=== PATIENT | male | born 1945 | race Caucasian/White ===

== ENCOUNTER 2017-11-26 06:20 | Inpatient (IN) | payer OTHER, MEDICARE ==
[~2017-11-26] VITALS: Ht 162.6 cm; Wt 113.4 kg
[~2017-11-26 06:20] MED LIST: ASPI1TAB57 PO; ATOR10TA15 PO; CALC1TAB87 PO; CENTCHW4 CHEW; COEN1CAP PO; FISH1200 PO; GLIP10TA6 PO; LANTUS2P SQ; METF1000 PO; RAMI5CAP PO; SAW500CA PO
[2017-11-26] MEDS ORDERED: FAT EMULSION 20% INJ 0 ML ONE (07:16)
[2017-11-26] MEDS ORDERED: MIDAZOLAM HCL 2 MG/2 ML VIAL ONE (07:32)
[2017-11-26] MEDS ORDERED: BUPIVACAINE LIPOSOME PF 1.3% 20 ML VIAL ONE (07:33)
[2017-11-26] MEDS ORDERED: ceFAZolin 2 GM PREMIX 50 ML ONE (07:33)
[2017-11-26] MEDS ORDERED: GENTAMICIN SULFATE 80 MG/2 ML VIAL ONE (07:34)
[2017-11-26] MEDS ORDERED: TRANEXAMIC ACID IV SCH (07:45)
[2017-11-26] MEDS ORDERED: LACTATED RINGER'S 1000 ML IV PRN (07:45)
[2017-11-26] MEDS ORDERED: CHLORHEXIDINE GLUCONATE 2 % 1 PACK (2 CLOTHS) TOPICAL PRN (07:45)
[2017-11-26] MEDS ORDERED: INSULIN HUMAN REGULAR 1,000 UNITS/10 ML VIAL SQ PRN (07:45)
[2017-11-26] MEDS ORDERED: EXPAREL PERI-ARTICULAR INJECTION (TOTAL VOL. 60 ML) P-ARTICULR SCH ×2 (07:45)
[2017-11-26] MEDS ORDERED: METOPROLOL TARTRATE 25 MG TAB PO PRN (07:45)
[2017-11-26] MEDS ORDERED: SODIUM CHLORID 0.9% 500 ML IV PRN (07:45)
[2017-11-26] MEDS ORDERED: CHLORHEXIDINE GLUCONATE 4% SOLN 120 ML BTL TOPICAL SCH (07:45)
[2017-11-26] MEDS ORDERED: POVIDONE IODINE 5% (ANTISEPSIS KIT) 4 APPLICATIONS EACH NARE PRN (07:45)
[2017-11-26] MEDS ORDERED: SODIUM CHLORIDE 0.9% IV SCH (07:45)
[2017-11-26] MEDS ORDERED: VANCOMYCIN 1000 MG/NS 250 ML (for <70 kg) IV SCH ×2 (07:45)
[2017-11-26] MEDS ORDERED: BUPIVACAINE/EPINEPHRINE 0.25% 50 ML VIAL ONE (07:46)
[2017-11-26] MEDS ORDERED: BUPIVACAINE/EPINEPHRINE 0.25% PF 10 ML VIAL ONE (07:46)
[2017-11-26] MEDS ORDERED: ACETAMINOPHEN 1000 MG/100 ML 100 ML IV ONE (08:44)
[2017-11-26] MEDS ORDERED: DEXMEDETOMIDINE HCL 200 MCG/2 ML VIAL ONE (08:54)
[2017-11-26] MEDS ORDERED: SODIUM CHLORIDE 0.9% 20 ML VIAL ONE (11:02)
[2017-11-26] MEDS ORDERED: ePHEDrine/NS 25 MG/5 ML SYRINGE IV ONE (12:00)
[2017-11-26] MEDS ORDERED: NEOSTIGMINE 5 MG/5 ML SYRINGE IV PUSH ONE (12:00)
[2017-11-26] MEDS ORDERED: SUCCINYLCHOLINE CHLORIDE 100 MG/5 ML SYRINGE IV PUSH ONE (12:00)
[2017-11-26] MEDS ORDERED: GLYCOPYRROLATE 1 MG/5 ML SYRINGE IV PUSH ONE (12:00)
[2017-11-26] MEDS ORDERED: LIDOCAINE HCL 1% PF 5 ML SYRINGE OTHER ONE (12:00)
[2017-11-26] MEDS ORDERED: PROPOFOL 200 MG/20 ML AMP IV ONE (12:00)
[2017-11-26] MEDS ORDERED: PHENYLEPH/NS 1000 MCG/10 ML SYR IV ONE (12:00)
[2017-11-26] MEDS ORDERED: LACTATED RINGER'S 1000 ML INJ 1,000 ML IV ONE (12:00)
[2017-11-26] MEDS ORDERED: ROCURONIUM INJ 50 MG/5 ML SYRINGE IV PUSH ONE (12:00)
[2017-11-26] MEDS ORDERED: ONDANSETRON HCL 4 MG/2 ML VIAL IV ONE (12:00)
--- NOTE | 2017-11-26 12:14 | PD.OP ---
cc: Gurwinder Galloway MD Operative Report Date of Surgery: Nov 26, 2017 Preoperative Diagnosis: Osteoarthritis left knee Postoperative Diagnosis: Same Procedure: Left total knee replacement arthroplasty Anesthesia: Gen. with regional for pain control Surgeon: Gurwinder Galloway Children'S Attendant(s): SADIE Matias Operation and Findings: EBL: 100 cc INDICATION: This patient presents with long-standing arthritis of the knee. Attachment record documents conservative measures. The patient now presents for surgical treatment. NOTE: Daiana Matias PA-C was present for the entire surgical procedure as my catalog library assistant. In my medical opinion her skill and care was necessary for proper management of this patient. TOURNIQUET TIME: 65 minutes COMPANY: [employer] FEMUR: Size 7, post stab TIBIA: Size 7, fixed bearing, cemented, 20 mm stem PATELLA: 35 mm POLYETHYLENE INSERT: 11 mm PROCEDURE: This patient was brought the operating room and anesthetized in the supine position. The patient was positioned supine on the table. The tourniquet was placed about the thigh, and the leg was scrubbed with alcohol followed by Hibiclens followed by ChloraPrep and draped sterilely. A timeout was done, and antibiotics were given. After exsanguination the tourniquet was inflated to 250 mmHg. An anterior incision was made and a median parapatellar arthrotomy was performed. The patella was released laterally and subluxed allowing freehand cut of the patella which was then sized. A metal cap was placed over the exposed patellar surface for protection. A fighter pilot hole was placed in the distal femur allowing a 5 valgus cut removing 12 mm from the distal femur. Anterior posterior and chamfer cuts were made. The posterior stabilize osteotomy was made. The attention was directed to the tibia. Retractors were positioned. The external alignment guide was used allowing the lateral tibia to be used as referencing guide and cut utilizing an oscillating saw taking care to avoid any injury to the surrounding soft tissues. This was sized properly. Trial reduction showed that the insert fit nicely. The patient had range of motion extension 0 flexion 125. A medial release was partially necessary. The bony surfaces prepared. On the back table 2 packets of methylmethacrylate were mixed. The components were cemented. Excess cement was removed. The tourniquet let down and hemostasis was controlled. The final plastic insert was inserted. Range of motion was the same as previously noted. A drain was brought through a separate stab incision. The arthrotomy was repaired with interrupted #1 Vicryl suture, subcutaneous tissue 2-0 Vicryl suture and skin with metallic pablo A sterile dressing was applied. Sponge counts, needle counts and instrument counts were all correct. The patient tolerated procedure well and was taken to recovery in satisfactory condition. FINDINGS: There was severe osteoarthritis with erosion of bone stock and a varus deformity of the knee. The final solution was excellent. There was no complication that was appreciated. Gurwinder Galloway MD Nov 26, 2017 12:14
[2017-11-26] MEDS ORDERED: GLUCAGON 1 MG/ML VIAL OTHER PRN (12:15)
[2017-11-26] MEDS ORDERED: DEXTROSE 50% IN WATER 50 ML VIAL(D50) IV PUSH PRN (12:15)
[2017-11-26] MEDS ORDERED: ASPIRIN EC 81 MG TABEC PO ONE (12:15)
[2017-11-26] MEDS ORDERED: OXYC1TAB63 PO (12:17)
[2017-11-26] MEDS ORDERED: ECASA81 PO (12:17)
[2017-11-26] MEDS ORDERED: oxyCODONE/ACETAMINOPHEN 5 MG/325 MG TAB PO PRN (12:30)
[2017-11-26] MEDS ORDERED: Post-op Orders (for Pharmacy) XX ONE (13:00)
[2017-11-26] MEDS: LACTATED RINGER'S 1000 ML INJ 1,000 ML IV SCH ×2 (13:00→22:02)
[2017-11-26] MEDS ORDERED: MORPHINE SULFATE 4 MG/ML INJ ONE (13:06)
--- NOTE | 2017-11-26 13:13 | RADRPT ---
EXAM DATE/TIME: 11/26/2017 12:44 [facility] COMPARISON: No previous studies available for comparison. INDICATIONS : Post left knee arthroplasty. MEDICAL HISTORY : None. SURGICAL HISTORY : Fusion, cervical. ENCOUNTER: Initial ACUITY: 1 day PAIN SCORE: Non-responsive. LOCATION: Left knee FINDINGS: Patient is status post placement of a left knee prosthesis. There is good position and alignment of t he prosthesis and bony structures. The bony structures are grossly intact. Postsurgical changes are p resent. CONCLUSION: Good position and alignment on this postoperative examination. Olaf Pereira MD on November 26, 2017 at 13:10 Board Certified Radiologist. This report was verified electronically.
[2017-11-26] MEDS ORDERED: *morphine SULFATE 10 MG/ML PERIprocedure ONLY ONE ×2 (14:00→16:26)
[2017-11-26] MEDS ORDERED: DO NOT ADM ANY ANTICOAGULANT DRUGS PRN (14:00)
[2017-11-26] MEDS: metFORMIN HCL 500 MG TAB PO SCH (18:00)
[2017-11-26 19:30] VITALS: BP 124/76; PULSE 104; RESP 19; TEMP 96.7; O2SAT 94
[2017-11-26] MEDS: MAGNESIUM HYDROXIDE SUSP 30 ML CUP PO SCH (21:00)
[2017-11-26] MEDS ORDERED: TEMAZEPAM 15 MG CAP PO PRN (21:00)
[2017-11-26] MEDS: ATORVASTATIN 10 MG TAB PO SCH (21:51)
[2017-11-26] MEDS: SENNOSIDES 8.6 MG TAB PO SCH (21:52)
[2017-11-26] MEDS: ASPIRIN EC 81 MG TABEC PO SCH (21:52)
[2017-11-26] MEDS: INSULIN DETEMIR 100 UNITS/ML VIAL SQ SCH (21:53)
--- NOTE | 2017-11-26 22:16 | HHI.FF ---
Face to Face Verification Diagnosis: (1) Osteoarthritis of left knee Physical Therapy Gait training, Safety evaluation, Transfer training, bed to chair Knee: Total knee, Protocol: Left, Full weight bearing Canvas Knee Splint: When in bed & 2 pillows btw thighs Left LE Weight Bearing: WB as tolerated Additional Instructions PT 3-4 days/wk for 2 weeks. WBAT Left LE. TKA protocol. CPM bid as tolerated , 0-60 with goal of 100 flexion. CKS when in bed for 3-4 weeks Nursing RN Days per Week: 2 x Week(s): 1 RN: 3 days/week x 2 weeks (Not sure why this is automating to 3x/wk for 2. Should only be 2x/wk for 1 week.) Dressing Changes: Do not change dressing Additional Instructions Vitals assessment. Hold dressing changes unless saturated or erythema. I have seen patient Yousif Trinh on 11/26/17. My clinical findings support the need for the requested home health care services because: Limited ability to care for self High risk of falls I certify that my clinical findings support that this patient is homebound because: Post-op weakness Unsteady gait/balance Daiana Matias Nov 26, 2017 22:16
[2017-11-26] MEDS ORDERED: WALKER WHEELS/F1 MIS (22:17)
[2017-11-27] VITALS: BP 140/74; PULSE 102; RESP 18; TEMP 97.8; O2SAT 95
[2017-11-27] MEDS: MORPHINE SULFATE 8 MG/ML INJ IM PRN ×3 (04:27→16:29)
[2017-11-27 04:50] VITALS: BP 120/74; PULSE 102; RESP 19; TEMP 98.5; O2SAT 95
[2017-11-27] MEDS: ASPIRIN EC 81 MG TABEC PO SCH ×2 (07:53→21:03)
[2017-11-27] MEDS: RAMIPRIL 5 MG CAP PO SCH (07:53)
[2017-11-27] MEDS: MAGNESIUM HYDROXIDE SUSP 30 ML CUP PO SCH ×3 (07:54→21:00)
[2017-11-27] MEDS: metFORMIN HCL 500 MG TAB PO SCH ×2 (07:54→15:34)
[2017-11-27] MEDS: glipiZIDE 10 MG TAB PO SCH (07:55)
[2017-11-27 08:00] VITALS: BP 117/73; PULSE 103; RESP 18; TEMP 99.2; O2SAT 97
[2017-11-27] MEDS: oxyCODONE/ACETAMINOPHEN 5 MG/325 MG TAB PO PRN ×3 (10:01→21:05)
[2017-11-27 11:54] VITALS: BP 127/80; PULSE 95; RESP 18; TEMP 99; O2SAT 98
--- NOTE | 2017-11-27 12:41 | PD.ORT.PN ---
Subjective Subjective Remarks He notes moderate to substantial left knee pain. 'Its worse than I though it would be, but im ok'. He denies any new radiating leg pain past the knee. He did have to be straight cathed yesteday and today. He denies any sensation of retention now. He has not urinated since his last cath. No new CP or SOB. Objective Vitals Vital Signs Date Time Temp Pulse Resp B/P (MAP) Pulse Ox O2 Delivery O2 Flow Rate FiO2 11/27/17 11:54 99.0 95 18 127/80 (96) 98 11/27/17 11:04 18 11/27/17 08:00 99.2 103 18 117/73 (88) 97 11/27/17 07:59 18 11/27/17 04:50 98.5 102 19 120/74 (89) 95 11/27/17 00:00 97.8 102 18 140/74 (96) 95 11/26/17 19:30 96.7 104 19 124/76 (92) 94 11/26/17 18:00 103 13 122/73 (89) 94 Nasal Cannula 3 11/26/17 17:00 98.6 107 17 123/60 (81) 94 Nasal Cannula 3 11/26/17 16:00 109 13 125/73 (90) 94 Nasal Cannula 3 11/26/17 15:00 106 12 135/81 (99) 95 Nasal Cannula 3 11/26/17 14:30 111 14 141/77 (98) 95 Nasal Cannula 3 11/26/17 14:00 99.0 102 13 135/79 (97) 97 Nasal Cannula 3 11/26/17 13:30 101 14 129/80 (96) 95 Nasal Cannula 3 11/26/17 13:15 105 15 127/81 (96) 95 Nasal Cannula 3 11/26/17 13:00 98 14 140/80 (100) 92 Nasal Cannula 3 11/26/17 12:45 97 14 143/81 (101) 93 Nasal Cannula 3 I/O 11/26/17 11/26/17 11/26/17 11/27/17 11/27/17 11/27/17 07:00 15:00 23:00 07:00 15:00 23:00 Intake Total 2100 ml 2180 ml 580 ml Output Total 100 ml 1200 ml Balance 2000 ml 2180 ml -620 ml Intake Oral 480 ml 480 ml IV Total 2100 ml 1700 ml 100 ml Output Urine Total 1200 ml Estimated Blood Loss 100 ml Bladder Scan Volume Amount 886 ml # Voids 1 # Bowel Movements 0 0 Objective Remarks Sitting up in chair NAD VSS at bedside Left LE Knee dressing c/d/i, no drain, mild-moderate swelling, no erythema +motor at, +sens, +nvi Neg homans sign Assessment & Plan Ortho Post Op Day #: 1 Problem List: Assessment and Plan pod#1 s/p L TKA Pain moderately controlled. He still requires occasional morphine. Encouraged po meds - he is on percocet 5mg. Urinary retention - he has been straight-cathed 2x. If it is needed again, I instructed the RN to leave the carrington in. Flomax 0.4 mg daily beginning now. PT - WBAT LLE. TKA protocol. ASA 81mg bid. IS encouraged. D/C planning, HHC tomorrow if urinary retention resolves. DME - walker written. Pt has CPM at home and declines commode. Daiana Matias Nov 27, 2017 12:40
[2017-11-27] MEDS: TAMSULOSIN HCL 0.4 MG CAP PO SCH (12:54)
[2017-11-27] MEDS: LACTATED RINGER'S 1000 ML INJ 1,000 ML IV SCH (13:06)
[2017-11-27 16:00] VITALS: BP 116/62; PULSE 113; RESP 18; TEMP 97.4; O2SAT 94
[2017-11-27 19:47] LABS: HEMOGLOBIN 12.2 GM/DL (13.0-17.0)
[2017-11-27 20:58] VITALS: BP 141/82; PULSE 111; RESP 18; TEMP 99; O2SAT 92
[2017-11-27] MEDS: SENNOSIDES 8.6 MG TAB PO SCH (21:00)
[2017-11-27] MEDS: INSULIN DETEMIR 100 UNITS/ML VIAL SQ SCH (21:00)
[2017-11-27] MEDS: ATORVASTATIN 10 MG TAB PO SCH (21:02)
[2017-11-28 00:39] VITALS: BP 133/58; PULSE 115; RESP 18; TEMP 99.7; O2SAT 92
[2017-11-28] MEDS: LACTATED RINGER'S 1000 ML INJ 1,000 ML IV SCH ×2 (01:36→07:46)
[2017-11-28] MEDS: oxyCODONE/ACETAMINOPHEN 5 MG/325 MG TAB PO PRN ×3 (04:43→15:42)
[2017-11-28] MEDS: MAGNESIUM HYDROXIDE SUSP 30 ML CUP PO SCH (07:44)
[2017-11-28] MEDS: ASPIRIN EC 81 MG TABEC PO SCH (07:46)
[2017-11-28] MEDS: glipiZIDE 10 MG TAB PO SCH (07:46)
[2017-11-28] MEDS: TAMSULOSIN HCL 0.4 MG CAP PO SCH (07:46)
[2017-11-28] MEDS: metFORMIN HCL 500 MG TAB PO SCH (07:46)
[2017-11-28] MEDS: RAMIPRIL 5 MG CAP PO SCH (07:46)
[2017-11-28 08:00] VITALS: BP 121/66; PULSE 104; RESP 18; TEMP 99.6; O2SAT 93
--- NOTE | 2017-11-28 08:43 | HHI.DCPOC ---
Discharge Care Plan Diagnosis: (1) Urinary bladder incontinence (2) Osteoarthritis of left knee Your Health Problems Are: Difficulty with ADL Incision/Drains Swelling Urinary Difficulties Goals to Promote Your Health * To prevent worsening of your condition and complications * To maintain your health at the optimal level Directions to Meet Your Goals Take your medications as prescribed Follow your dietary instruction Follow activity as directed Keep your appointments as scheduled Take your immunizations and boosters as scheduled If your symptoms worsen call your PCP, if no PCP go to Urgent Care Center or Emergency Room Smoking is Dangerous to Your Health. Avoid second hand smoke Call the 24-hour hour crisis hotline for domestic abuse at Daiana Matias Nov 28, 2017 08:43
--- NOTE | 2017-11-28 08:47 | PD.ORT.PN ---
Subjective Subjective Remarks His pain is better controlled today. He denies any new leg pain. He is comfortable at rest. Carrington cath was placed yesterday as he continued to retain urine despite being straight cath'd twice. No new CP, SOB, abd pain or fever. He is eager to get home. Objective Vitals Vital Signs Date Time Temp Pulse Resp B/P (MAP) Pulse Ox O2 Delivery O2 Flow Rate FiO2 11/28/17 00:39 99.7 115 18 133/58 (83) 92 11/27/17 20:58 99.0 111 18 141/82 (101) 92 11/27/17 16:35 18 11/27/17 16:35 18 11/27/17 16:00 97.4 113 18 116/62 (80) 94 11/27/17 11:54 99.0 95 18 127/80 (96) 98 I/O 11/27/17 11/27/17 11/27/17 11/28/17 11/28/17 11/28/17 07:00 15:00 23:00 07:00 15:00 23:00 Intake Total 580 ml 600 ml 720 ml 360 ml Output Total 1200 ml 900 ml 500 ml 350 ml Balance -620 ml -300 ml 220 ml 10 ml Intake Oral 480 ml 600 ml 720 ml 360 ml IV Total 100 ml Output Urine Total 1200 ml 900 ml 500 ml 350 ml Bladder Scan Volume Amount 886 ml # Voids 1 1 # Bowel Movements 0 0 0 0 Result Diagram: 11/27/171930 Objective Remarks Sitting up in chair Eating breakfast NAD VSS at bedside Left LE Knee dressing c/d/i, no drain, mild-moderate swelling, no erythema +motor at, +sens, +nvi Neg homans sign Assessment & Plan Ortho Post Op Day #: 2 Problem List: Assessment and Plan pod#2 s/p L TKA Pain moderately controlled. PO pain meds as needed. Carrington cath in place. Patient started on Flomax yesterday. He states he does not have an outpatient urologist. Consult urology. Likely he will need to go home with carrington and have removed outpatient on saturday. He prefers to go home today. Flomax 0.4 mg daily beginning now. PT - WBAT LLE. TKA protocol. ASA 81mg bid. IS encouraged. D/C planning, HHC today is ok per urology. DME - walker written. Pt has CPM at home and declines commode. F2F written. F/U in 2 weeks as scheduled. Daiana Matias Nov 28, 2017 08:47
--- NOTE | 2017-11-28 10:18 | MB ---
cc: Tony Olivera DO DATE: 11/28/2017 HISTORY OF PRESENT ILLNESS: Mr. Trinh is a pleasant 72-year-old male who recently underwent a left total knee replacement by Dr. Galloway. He has gone into urinary retention postoperatively. Prior to his hospitalization, he admits a history of nocturia 2-3 times with a good stream overall. He denies being in retention in the past. He denies being on any medications or having problems with his prostate before. PAST MEDICAL HISTORY: Includes diabetes, hypertension, cervical stenosis, COPD. ALLERGIES: PENICILLIN AND ALEVE. PAST SURGICAL HISTORY: Noted for a right total knee replacement, cervical spine surgery, right toe surgery. SOCIAL HISTORY: Admits to a 35-year history of smoking cigarettes. He has quit many years ago. Denies drinking. Denies using drugs. FAMILY HISTORY: Denies any family history of prostate cancer. REVIEW OF SYSTEMS: Denies chest pain. Denies shortness of breath. Denies abdominal pain. Notes nocturia 2-3 times, moderate stream. Denies hematuria. Denies gait disturbances, bleeding disorders psychiatric problems. The remaining review of systems were reviewed and are negative. PHYSICAL EXAM: VITAL SIGNS: Today, temperature 99.6, heart rate 104, respiratory rate 18, 121/66 is his blood pressure, 93% on room air. GENERAL: He is an obese 72-year-old male in no acute distress. HEENT: Normocephalic, atraumatic. Pupils equal, round, regular and reactive to light. Extraocular movements intact. NECK: Supple. HEART: Regular rate and rhythm. LUNGS: Clear bilaterally. ABDOMEN: Soft, nontender, nondistended. GENITOURINARY: Normal phallus. Testes are descended. Steinberg catheter is in place draining clear urine. EXTREMITIES: The left lower extremity is splinted with an Speedy wrap bandage around it. The extremities show no cyanosis, clubbing, or edema. NEUROLOGIC: Cranial nerves II-XII are intact. LABORATORY DATA: Hemoglobin is 12.2, hematocrit 36.0. ASSESSMENT AND PLAN: This is a 72-year-old male status post left total knee replacement with a history of nocturia 2-3 times. Will recommend he continue Flomax 0.4 mg p.o. at bedtime. We will continue with Steinberg catheter and would recommend having a void trial in approximately 5-7 days. If this is unacceptable, patient will need to be instructed to learn clean intermittent catheterization until the Flomax can take effect. Would wean narcotics as appropriate and avoid constipation. Thank you for the consult and allowing me to participate in the care of this patient. DO LOS Judge/JUAN J , 10:00 AM , 10:16 AM
[2017-11-28 11:35] VITALS: BP 121/63; PULSE 120; RESP 17; TEMP 98.3; O2SAT 95
--- NOTE | 2017-12-01 22:57 | HHI.DS ---
Discharge Summary Admission Date Nov 26, 2017 at 08:10 Discharge Date: Nov 28, 2017 Admitting Diagnosis see below Diagnosis: (1) Urinary bladder incontinence Diagnosis: Secondary ICD Codes: R32 - Unspecified urinary incontinence (2) Osteoarthritis of left knee Diagnosis: Principal ICD Codes: M17.12 - Unilateral primary osteoarthritis, left knee Procedures Left total knee arthroplasty Brief History This is a 72 year old male patient with a long history of left knee pain. He sought out treatment by an orthopaedic surgeon. Xrays were taken showing moderate to severe osteoarthritis of the left knee and the development of a varus knee deformity. Conservative measures were pursued n the form of multiple rounds of orthovisc (2014 and 2015) and use of nonsteroidal medications. He could not utilize cortisone injections often due to his diabetes. His function continued to decline. Surgical treatment was recommended in the form of left total knee arthroplasty. The patient agreed to surgical treatment and now presents for the above. CBC/BMP: 11/27/17 1931 PE at Discharge Sitting up in chair Eating breakfast NAD VSS at bedside Left LE Knee dressing c/d/i, no drain, mild-moderate swelling, no erythema +motor at, +sens, +nvi Neg homans sign Hospital Course Surgical treatment was performed on the day of admission without complication. He recovered well in PACU and was transferred to the orthopaedic floor. Pain was controlled with IV and oral medications. He struggled with urinary retention day one. Straight catheterization was utilized twice and after continuing to retain urine a carrington catheter was placed. He was started on Flomax 0.4mg daily and evaluated by a urologist. He was compliant with physical therapy and all total knee precautions. After 2 days he was found to be stable orthopaedically. He was discharged home with home health care with instruction from his urologist to continue the flomax for 5 days and to follow up outpatient for removal of his catheter. He was educated to pursue a high fiber, diabetic diet, to ice his operative knee twice daily and to use his AMY hose. He was given prescriptions for percocet 5mg and ASA 81mg. Pt Condition on Discharge: Stable Discharge Disposition: Disch w/ Home Health Serv Discharge Instructions Diet Instructions: Diabetic Diet, High Fiber Diet Activities You Can Perform: Weight Bearing as Bill Activities to Avoid: Strenuous Activity Additional Activity Instruc.: TKA protocol New Medications: Walker with Front Wheels (Walker with Front Wheels) 1 Mis Mis EA .XX DIRECTED, #[address] (Aspirin DR) 81 Mg Tabdr 81 MG PO BID for Prevent Blood Clot, #60 TAB Oxycodone HCl/Acetaminophen (Oxycodone-Acetaminophen 5-325) 5 Mg-325 Mg Tablet 1 TAB PO Q4H PRN for PAIN, #50 TAB Continued Medications: Aspirin DR (Aspirin 81) 81 Mg Tabdr 81 MG PO DAILY, TAB 0 Refills Atorvastatin (Atorvastatin) 10 Mg Tab 10 MG PO HS for Cholesterol Management, #30 TAB 0 Refills Calcium Carbonate-Cholecalciferol (Calcium 600 with Vitamin D) 600-400 mg-Unit Tab 1 TAB PO DAILY for Calcium Supplement, TAB 0 Refills Coenzyme Q10 (Ubidecarenone) (Co Q-10) 100 Mg Cap 1 CAP PO DAILY Glipizide (Glipizide) 10 Mg Tab 10 MG PO DAILY for Blood Sugar Management, #30 TAB 0 Refills Take 30 minutes before a meal Insulin Glargine Inj (Lantus Inj) 1,000 Unit/10 Ml Vial 16 UNITS SQ HS for Blood Sugar Management, VIAL 0 Refills Metformin (Metformin) 1,000 Mg Tab 1000 MG PO BIDPC for Blood Sugar Management, #60 TAB 0 Refills Multiple Vitamins W/ Minerals (Centrum) 1 Chew 1 TAB CHEW DAILY for Nutritional Supplement, TAB 0 Refills Perry-3 Fatty Acids (Fish Oil 1200 mg) 360 Mg-1,200 Mg Cap 1 CAP PO DAILY Ramipril (Ramipril) 5 Mg Cap 5 MG PO DAILY, #30 CAP 0 Refills Saw Ada (Saw Ada) 500 Mg Capsule 1 CAP PO DAILY Daiana Matias Dec 01, 2017 22:57
== END 2017-11-28 16:24 | disposition home health service (06) | DRG 470 ==
LOC: HSDC 06:20 → N06B 08:10 → EDSTATUS 09:00 → HSDC 18:54 → N06B 18:54 → HSDC 18:55
PROVIDERS: ADMIT Orthopaedic Surgery Orthopaedic Surgery of the Spine; ATTEND Orthopaedic Surgery Orthopaedic Surgery of the Spine
PROC: 0SRD0J9 Replacement of Left Knee Joint with Synthetic Substitute, Cemented, Open Approach (ICD-10-PCS; principal; 2017-11-26 09:39)
DX: M17.12 Unilateral primary osteoarthritis, left knee (principal); J44.9 Chronic obstructive pulmonary disease, unspecified; E11.9 Type 2 diabetes mellitus without complications; Z68.41 Body mass index [BMI] 40.0-44.9, adult; I10 Essential (primary) hypertension; M21.162 Varus deformity, not elsewhere classified, left knee; R33.9 Retention of urine, unspecified; Z96.651 Presence of right artificial knee joint; R35.1 Nocturia; E78.5 Hyperlipidemia, unspecified; G47.30 Sleep apnea, unspecified; E66.9 Obesity, unspecified; M48.02 Spinal stenosis, cervical region; Z87.891 Personal history of nicotine dependence; Z23 Encounter for immunization; Z79.4 Long term (current) use of insulin
CPT/HCPCS: 73560; 82948; 85014; 85018; 86850; 86900; 86901; 86920; C1776; C9290; J0131; J0330; J0690; J1580; J2250; J2270; J2370; J2405; J2710; J3010; J3370; J7050; J7120; L1830